=== PATIENT | male | born 1990 | race Two or more races ===

== ENCOUNTER 2019-04-06 02:18 | Emergency (ER) | payer SELFPAY ==
[~2019-04-06] VITALS: Ht 182.9 cm; Wt 95.0 kg
[~2019-04-06 02:18] MED LIST: IBUP200T49; LANS15CA60; PROBIOTICS
[2019-04-06 02:20] VITALS: BP 126/75
[2019-04-06] MEDS ORDERED: LIDOCAINE 1%, 10ML INFIL ONE (02:30)
[2019-04-06] MEDS ORDERED: DIPH,PERTUSS(ACELL),TET VAC/PF 0.5 ML IM-VACC ONE ×2 (02:30→02:33)
[2019-04-06] MEDS ORDERED: LIDOCAINE-MPF 1%, 5ML ONE (02:33)
--- NOTE | 2019-04-06 02:40 | NUR ---
Pt given warm blanket for comfort and back from ct. Awaiting ct results for dion. Staple supplies at bedside for pa.
--- NOTE | 2019-04-06 03:13 | NUR ---
Pt ambulates out ambulance bay, cussing at staff, refusing to stay. Gait is steady, talking with EMS in parking lot.
--- NOTE | 2019-04-06 03:13 | NUR ---
Pt walking into hallway yelling at staff and cursing at them "kei wont even help me. id rather in the streets than in here on the bed, by myself." This rn, pa and supervisor water softener service attempted to re-educate pt on need for ct results before we fix his wound and the process of care. Pt still refusing care and stating "[place] just go [place] the [employer] [employer] [address], kei dont give a shit. You get your bill anyway. you gutierrez bill me for this no matter what." This rn attempted to get pt to sign ama. Pt refusing and walked w/ steady gait out ambulance bay.
== END 2019-04-06 03:17 | disposition left against medical advice (07) ==
LOC: ED 03:00
DX: S01.01XA Laceration without foreign body of scalp, initial encounter (principal); R07.89 Other chest pain; Y04.0XXA Assault by unarmed brawl or fight, initial encounter; Y93.89 Activity, other specified; Y92.89 Other specified places as the place of occurrence of the external cause; Y99.8 Other external cause status
CPT/HCPCS: 70450; 72125; 90471; 90715